=== PATIENT | female | born 1995 | race Caucasian/White ===

== ENCOUNTER 2021-05-08 22:58 | Inpatient (IN) | payer BC, MEDICAID ==
[2021-05-09] MEDS ORDERED: Zolpidem 5 MG Tab PO PRN (00:04)
[2021-05-09] MEDS ORDERED: Misoprostol 400 MCG (4 X 100 MCG TAB) RECTAL PRN (00:04)
[2021-05-09] MEDS ORDERED: Carboprost Tromethamine 250 MCG/1 ML Amp IM PRN (00:04)
[2021-05-09] MEDS ORDERED: Oxytocin 10 Units/1 ML SDV IM PRN (00:04)
[2021-05-09] MEDS ORDERED: Tranexamic Acid 1,000 MG in Sodium Chloride 0.9% 100 ML IV PRN (00:04)
[2021-05-09] MEDS ORDERED: Benzocaine/Menthol 20%-0.5% Spray 78 GM Cannister TOP PRN (00:04)
[2021-05-09] MEDS ORDERED: Simethicone 80 MG Tab.Chew PO PRN (00:04)
[2021-05-09] MEDS: Ibuprofen 800 MG Tab PO PRN ×3 (00:15→19:48)
[2021-05-09] MEDS: Docusate Sodium 100 MG Cap PO PRN ×2 (01:58→08:37)
[2021-05-09] MEDS: Acetaminophen 325 MG Tab PO PRN ×3 (01:58→16:45)
[2021-05-09] MEDS ORDERED: Prenatal Multivitamin with Calcium/Folic Acid/Iron Tab PO SCH (09:00)
== END 2021-05-09 23:55 | disposition home or self-care (01) | DRG 560 ==
LOC: DL.OBCHECK 22:58 → OBSVTOIN 23:27 → DL.OB 23:27
PROVIDERS: ADMIT Family Medicine; ATTEND Family Medicine
PROC: 10E0XZZ Delivery of Products of Conception, External Approach (ICD-10-PCS; principal; 2021-05-08)
PROC: 10907ZC Drainage of Amniotic Fluid, Therapeutic from Products of Conception, Via Natural or Artificial Opening (ICD-10-PCS; 2021-05-08)
DX: O70.0 First degree perineal laceration during delivery (principal); Z3A.38 38 weeks gestation of pregnancy; Z37.0 Single live birth; Z20.822 Contact with and (suspected) exposure to COVID-19
CPT/HCPCS: 36415; 59409; 85027; A9270-GY; U0002

== ENCOUNTER 2024-01-03 11:34 | Inpatient (IN) | payer BC, MEDICAID ==
[2024-01-03] MEDS ORDERED: Methylergonovine 0.2 MG/1 ML Amp IM PRN (12:28)
[2024-01-03] MEDS ORDERED: Acetaminophen 325 MG Tab PO PRN (12:28)
[2024-01-03] MEDS ORDERED: Misoprostol 400 MCG (4 X 100 MCG TAB) RECTAL PRN (12:28)
[2024-01-03] MEDS ORDERED: Sodium Chloride 0.9% 10 ML Syringe FLUSH PRN (12:28)
[2024-01-03] MEDS ORDERED: Tranexamic Acid 1,000 MG in Sodium Chloride 0.9% 100 ML IV PRN (12:28)
[2024-01-03] MEDS ORDERED: Carboprost Tromethamine 250 MCG/1 ML Amp IM PRN (12:28)
[2024-01-03] MEDS ORDERED: Oxytocin/Normal Saline 30 UNIT/500 ML BAG IV SCH ×2 (12:30)
[2024-01-03] MEDS ORDERED: Misoprostol 50 MCG (1/2 of 100 MCG) Tab PO SCH (12:30)
[2024-01-04] MEDS: Lactated Ringers 1,000 ML IV SCH (18:18)
[2024-01-04 18:22] LABS: HEMOGLOBIN 9.8 g/dL (12.0-16.0); MEAN CORPUSCULAR HEMOGLOBIN 23.7 pg (27.0-34.0); MEAN CORPUSCULAR HGB CONC 30.6 g/dL (33.0-35.0); MEAN CORPUSCULAR VOLUME 77.3 fL (80-100); RED BLOOD CELL COUNT 4.14 10^6/uL (4.2-5.4); WHITE BLOOD CELL COUNT,WBC 9.7 10^3/uL (5.0-10.0)
[2024-01-04] MEDS ORDERED: fentaNYL 100 MCG/2 ML SDV ONE (18:29)
[2024-01-04] MEDS: Ondansetron 4 MG/2 ML SDV IVPUSH PRN (18:36)
[2024-01-04] MEDS ORDERED: ePHEDrine 50 MG/ML SDV IVPUSH PRN (18:49)
[2024-01-04] MEDS ORDERED: Phenylephrine HCl In 0.9% NaCl 1 MG/10 ML Syringe IVPUSH PRN (18:49)
[2024-01-04] MEDS: Lactated Ringers 1,000 ML IV ONE (19:00)
[2024-01-04] MEDS ORDERED: Ropivacaine 200 MG in Premix Bag 1 BAG EPIDUR SCH (19:00)
[2024-01-04] MEDS: Lidocaine 1% 30 ML SDV INJECT ONE (20:00)
[2024-01-04] MEDS ORDERED: Carboprost Tromethamine 250 MCG/1 ML Amp IM PRN (20:25)
[2024-01-04] MEDS ORDERED: Oxytocin 10 Units/1 ML SDV IM PRN (20:25)
[2024-01-04] MEDS ORDERED: Misoprostol 400 MCG (4 X 100 MCG TAB) RECTAL PRN (20:25)
[2024-01-04] MEDS ORDERED: Sodium Chloride 0.9% 10 ML Syringe FLUSH PRN (20:25)
[2024-01-04] MEDS ORDERED: Simethicone 80 MG Tab.Chew PO PRN (20:25)
[2024-01-04] MEDS ORDERED: Tranexamic Acid 1,000 MG in Sodium Chloride 0.9% 100 ML IV PRN (20:25)
[2024-01-04] MEDS ORDERED: Docusate Sodium 100 MG Cap PO PRN (20:25)
[2024-01-04] MEDS ORDERED: Acetaminophen 325 MG Tab PO PRN (20:25)
[2024-01-04] MEDS: Ondansetron 4 MG Tab.DIS PO PRN (21:26)
[2024-01-04] MEDS: Ibuprofen 800 MG Tab PO SCH (21:31)
[2024-01-04] MEDS ORDERED: Witch Hazel Medicated Pads 100/Jar TOP PRN (22:34)
[2024-01-05] MEDS: Benzocaine/Menthol 20%-0.5% Spray 78 GM Cannister TOP PRN (05:49)
[2024-01-05] MEDS: Prenatal Multivitamin with Calcium/Folic Acid/Iron Tab PO SCH (09:30)
== END 2024-01-06 12:50 | disposition home or self-care (01) | DRG 560 ==
LOC: DL.OB 01-04 18:02 → OBSVTOIN 01-04 19:40
PROVIDERS: ADMIT Family Medicine; ATTEND Family Medicine
PROC: 10E0XZZ Delivery of Products of Conception, External Approach (ICD-10-PCS; principal; 2024-01-04)
DX: O48.0 Post-term pregnancy (principal); Z37.0 Single live birth; Z3A.40 40 weeks gestation of pregnancy; O99.02 Anemia complicating childbirth; D64.9 Anemia, unspecified
CPT/HCPCS: 36415; 59409; 85027; A9270-GY; J2405; J7120